=== PATIENT | female | born 1995 | race African-American/Black ===

== ENCOUNTER 2017-02-20 17:52 | Emergency (ER) | payer MEDICAID ==
[~2017-02-20] VITALS: Ht 175.3 cm; Wt 59.0 kg
[2017-02-20 20:02] LABS: BASOPHILS % 0.6 % (0.0-2.0); EOSINOPHILS % 0.7 % (0.0-5.0); HEMATOCRIT. 38.8 % (36.0-48.0); LYMPHOCYTES % 24.7 % (20.0-50.0); MEAN CORPUSCULAR HEMOGLOBIN 30.3 pg (28.0-32.0); MEAN CORPUSCULAR VOLUME 90.6 fL (81.0-99.0); MEAN PLATELET VOLUME 8.3 fl (7.4-10.4); MONOCYTES % 10.6 % (2.0-8.0); NEUTROPHILS % 63.4 % (40.0-76.0); PLATELET 232 x1000/uL (130-400); RED BLOOD CELL COUNT 4.29 mill/uL (4.2-5.4); RED CELL DISTRIBUTION WIDTH 12.9 % (11.6-14.6)
[2017-02-20 20:09] LABS: HCG SCREEN NEGATIVE
[2017-02-20 20:17] LABS: CARBON DIOXIDE 25 mEq/L (21-32); CHLORIDE 105 mEq/L (98-107); ETHANOL BLOOD < 10 mg/dL
[2017-02-20] MEDS ORDERED: ACETAMINOPHEN 325MG TABLET PO ONE (21:45)
[2017-02-20] MEDS ORDERED: OLANZAPINE 10 MG/VIAL IM ONE (21:45)
[2017-02-20] MEDS ORDERED: SODIUM CHLORIDE 0.9% 1,000 ML IV ONE (22:11)
[2017-02-20 22:28] LABS: CLARITY URINE CLOUDY (CLEAR); COLOR URINE YELLOW (YELLOW); GLUCOSE URINE NEGATIVE (NEGATIVE); KETONES URINE 1+ (NEGATIVE); LEUKOCYTE ESTERASE URINE 2+ (NEGATIVE); NITRITE URINE NEGATIVE (NEGATIVE); OCCULT BLOOD URINE NEGATIVE (NEGATIVE); PH URINE 5.5 (4.5-8.0); PROTEIN URINE TRACE (NEGATIVE); SPECIFIC GRAVITY URINE 1.038 (1.005-1.030); UROBILINOGEN URINE 0.2 E.U./dL (0.2-1.0)
[2017-02-20 22:43] LABS: *AMPHETAMINES SCREEN URINE NEGATIVE (NEGATIVE); *BARBITURATES SCREEN URINE NEGATIVE (NEGATIVE); *BENZODIAZEPINES SCREEN URINE NEGATIVE (NEGATIVE); *COCAINE SCREEN URINE NEGATIVE (NEGATIVE); METHADONE URINE SCREEN NEGATIVE (NEGATIVE); OPIATES URINE SCREEN NEGATIVE (NEGATIVE); PHENCYCLIDINE URINE SCREEN NEGATIVE (NEGATIVE)
[2017-02-20 23:04] LABS: CANNABINOID URINE SCREEN PRESUMTIVE POSITIVE (NEGATIVE)
[2017-02-20] MEDS ORDERED: CEFTRIAXONE 1 G PREMIX 50 ML IV ONE (23:30)
[2017-02-21 05:15] VITALS: BP 92/66
[2017-02-21] MEDS ORDERED: LEVOFLOXACIN 500MG TABLET PO SCH (11:00)
== END 2017-02-21 06:28 | disposition home or self-care (01) ==
LOC: ER 18:24
DX: F12.90 Cannabis use, unspecified, uncomplicated (principal); F91.8 Other conduct disorders; N39.0 Urinary tract infection, site not specified; R03.0 Elevated blood-pressure reading, without diagnosis of hypertension
CPT/HCPCS: 36415; 71010; 80048; 80305; 80307; 80329; 81001; 83605; 84703; 85025; 87040; 87086; 96361; 96365; 96372; 99285; G0482; J0696; J3490; J7030; Z7610

== ENCOUNTER 2018-09-12 12:12 | Emergency (ER) | payer MEDICAID ==
[~2018-09-12] VITALS: Ht 165.1 cm; Wt 75.0 kg
[2018-09-12 12:22] VITALS: BP 119/43
== END 2018-09-12 13:33 | disposition left against medical advice (07) ==
LOC: ER 12:12
DX: J02.9 Acute pharyngitis, unspecified (principal); Z53.21 Procedure and treatment not carried out due to patient leaving prior to being seen by health care provider

== ENCOUNTER 2018-09-12 13:43 | Emergency (ER) | payer MEDICAID ==
[~2018-09-12] VITALS: Ht 165.1 cm; Wt 73.0 kg
[2018-09-12] MEDS ORDERED: DEXAMETHASONE 10 MG/ML VIAL IM ONE (14:45)
[2018-09-12] MEDS ORDERED: KETOROLAC 30MG/ML VIAL IM ONE (14:45)
[2018-09-12 14:54] VITALS: BP 109/60
== END 2018-09-12 15:04 | disposition home or self-care (01) ==
LOC: ER 13:43
DX: J02.9 Acute pharyngitis, unspecified (principal); L53.9 Erythematous condition, unspecified; Z87.891 Personal history of nicotine dependence
CPT/HCPCS: 81025; 96372; 99283; J1100; J1885

== ENCOUNTER 2018-10-20 21:35 | Inpatient (IN) | payer SELFPAY ==
[~2018-10-20] VITALS: Ht 170.2 cm; Wt 64.9 kg
[2018-10-20] MEDS ORDERED: SODIUM CHLORIDE 0.9% 1,000 ML IV ONE (21:44)
[2018-10-20] MEDS ORDERED: OLANZAPINE 10 MG/VIAL IM ONE (21:45)
[2018-10-20] MEDS ORDERED: ONDANSETRON HCL 4MG/2ML INJ IV ONE (21:45)
[2018-10-20] MEDS ORDERED: LORAZEPAM 2MG/ML CPJ IM ONE (21:45)
[2018-10-20 22:44] LABS: BASOPHILS % 0.7 % (0.0-2.0); EOSINOPHILS % 0.6 % (0.0-5.0); HEMATOCRIT. 41.9 % (36.0-48.0); HEMOGLOBIN. 13.8 g/dL (12.0-16.0); MEAN CORPUSCULAR HEMOGLOBIN 30.6 pg (28.0-32.0); MEAN CORPUSCULAR VOLUME 92.8 fL (81.0-99.0); MEAN PLATELET VOLUME 8.1 fl (7.4-10.4); MONOCYTES % 6.3 % (2.0-8.0); NEUTROPHILS % 56.4 % (40.0-76.0); PLATELET 301 x1000/uL (130-400); RED BLOOD CELL COUNT 4.52 mill/uL (4.2-5.4); RED CELL DISTRIBUTION WIDTH 13.6 % (11.6-14.6)
[2018-10-20 22:47] LABS: CLARITY URINE CLEAR (CLEAR); COLOR URINE YELLOW (YELLOW); KETONES URINE NEGATIVE (NEGATIVE); LEUKOCYTE ESTERASE URINE TRACE (NEGATIVE); NITRITE URINE NEGATIVE (NEGATIVE); OCCULT BLOOD URINE NEGATIVE (NEGATIVE); PROTEIN URINE NEGATIVE (NEGATIVE); SPECIFIC GRAVITY URINE 1.006 (1.005-1.030); UROBILINOGEN URINE 0.2 E.U./dL (0.2-1.0)
[2018-10-20 22:50] LABS: CHLORIDE 109 mEq/L (98-107)
[2018-10-20 22:53] LABS: ETHANOL BLOOD 124 mg/dL; PARTIAL THROMBOPLASTIN TIME 24.7 sec (23.4-31.0); PROTHROMBIN TIME 10.1 sec (9.6-11.0)
[2018-10-20 22:58] LABS: *AMPHETAMINES SCREEN URINE NEGATIVE (NEGATIVE); *BARBITURATES SCREEN URINE NEGATIVE (NEGATIVE); *BENZODIAZEPINES SCREEN URINE NEGATIVE (NEGATIVE); *COCAINE SCREEN URINE NEGATIVE (NEGATIVE)
[2018-10-20 22:59] LABS: METHADONE URINE SCREEN NEGATIVE (NEGATIVE); OPIATES URINE SCREEN NEGATIVE (NEGATIVE); PHENCYCLIDINE URINE SCREEN NEGATIVE (NEGATIVE)
[2018-10-20 23:07] LABS: CANNABINOID URINE SCREEN PRESUMTIVE POSITIVE (NEGATIVE)
[2018-10-20 23:09] LABS: HCG SCREEN POSITIVE
[2018-10-20] MEDS ORDERED: DEXT 5%/0.45% NACL KCL 20MEQ/L 1,000 ML IV ONE (23:47)
[2018-10-21] VITALS (18 sets, daily range): BP systolic 75–142; BP diastolic 44–80
[2018-10-21] MEDS ORDERED: SODIUM CHLORIDE 0.9% 1,000 ML IV ONE ×2 (01:19→05:45)
[2018-10-21 02:43] LABS: CHLORIDE 115 mEq/L (98-107)
[2018-10-21] MEDS ORDERED: ONDANSETRON HCL 4MG/2ML INJ IV PRN (10:30)
[2018-10-21 12:25] LABS: BASOPHILS % 0.4 % (0.0-2.0); EOSINOPHILS % 0.5 % (0.0-5.0); HEMATOCRIT. 36.6 % (36.0-48.0); HEMOGLOBIN. 12.2 g/dL (12.0-16.0); LYMPHOCYTES % 27.4 % (20.0-50.0); MEAN CORPUSCULAR HEMOGLOBIN 30.5 pg (28.0-32.0); MEAN CORPUSCULAR VOLUME 91.8 fL (81.0-99.0); MEAN PLATELET VOLUME 7.8 fl (7.4-10.4); MONOCYTES % 7.5 % (2.0-8.0); NEUTROPHILS % 64.2 % (40.0-76.0); PLATELET 244 x1000/uL (130-400); RED BLOOD CELL COUNT 3.99 mill/uL (4.2-5.4); RED CELL DISTRIBUTION WIDTH 13.3 % (11.6-14.6)
[2018-10-21 12:32] LABS: CHLORIDE 114 mEq/L (98-107)
[2018-10-22] VITALS (11 sets, daily range): BP systolic 104–117; BP diastolic 54–76
[2018-10-22 12:07] LABS: BASOPHILS % 0.5 % (0.0-2.0); EOSINOPHILS % 0.8 % (0.0-5.0); HEMATOCRIT. 41.6 % (36.0-48.0); HEMOGLOBIN. 13.9 g/dL (12.0-16.0); MEAN CORPUSCULAR HEMOGLOBIN 30.7 pg (28.0-32.0); MEAN CORPUSCULAR VOLUME 91.7 fL (81.0-99.0); MEAN PLATELET VOLUME 8.3 fl (7.4-10.4); MONOCYTES % 6.2 % (2.0-8.0); NEUTROPHILS % 72.5 % (40.0-76.0); PLATELET 283 x1000/uL (130-400); RED BLOOD CELL COUNT 4.54 mill/uL (4.2-5.4); RED CELL DISTRIBUTION WIDTH 13.7 % (11.6-14.6)
[2018-10-22 12:12] LABS: CHLORIDE 105 mEq/L (98-107)
[2018-10-22] MEDS: ACETAMINOPHEN 325MG TABLET PO PRN (21:40)
[2018-10-23] VITALS: BP 99/51
[2018-10-23 04:00] VITALS: BP 146/99
[2018-10-23 08:00] VITALS: BP 116/66
[2018-10-23] MEDS: PRENATAL VIT/FE FUMARATE/FA TABLET PO SCH (08:50)
[2018-10-23] MEDS: ACETAMINOPHEN 325MG TABLET PO PRN ×2 (08:51→21:02)
[2018-10-23 12:00] VITALS: BP 116/50
[2018-10-23] MEDS ORDERED: ONDANSETRON 4MG ODT PO PRN (14:15)
[2018-10-23] MEDS: LORAZEPAM 0.5MG TABLET PO PRN (17:53)
[2018-10-23 20:00] VITALS: BP 114/60
[2018-10-24] VITALS: BP 111/59
[2018-10-24 04:00] VITALS: BP 121/69
[2018-10-24] MEDS: PRENATAL VIT/FE FUMARATE/FA TABLET PO SCH (08:30)
[2018-10-24] MEDS: ACETAMINOPHEN 325MG TABLET PO PRN ×2 (08:33→18:32)
[2018-10-24] MEDS: LORAZEPAM 0.5MG TABLET PO PRN ×2 (11:03→17:06)
[2018-10-25] MEDS: LORAZEPAM 0.5MG TABLET PO PRN ×2 (03:42→08:40)
[2018-10-25] MEDS: PRENATAL VIT/FE FUMARATE/FA TABLET PO SCH (08:40)
== END 2018-10-25 12:30 | disposition left against medical advice (07) | DRG 566 ==
LOC: ER 22:27 → MICUSO 10-21 01:10 → ENRESERV 10-21 07:43 → 6EST 10-22 21:12
PROVIDERS: ADMIT Internal Medicine; ATTEND Internal Medicine
DX: O9A.211 Injury, poisoning and certain other consequences of external causes complicating pregnancy, first trimester (principal); E87.8 Other disorders of electrolyte and fluid balance, not elsewhere classified; F17.210 Nicotine dependence, cigarettes, uncomplicated; T39.012A Poisoning by aspirin, intentional self-harm, initial encounter; O99.281 Endocrine, nutritional and metabolic diseases complicating pregnancy, first trimester; O99.341 Other mental disorders complicating pregnancy, first trimester; F31.9 Bipolar disorder, unspecified; O99.331 Smoking (tobacco) complicating pregnancy, first trimester; Z3A.00 Weeks of gestation of pregnancy not specified; Y92.89 Other specified places as the place of occurrence of the external cause
CPT/HCPCS: 36415; 76801; 80048; 80305; 80307; 80320; 80329; 84702; 84703; 93970; 96361; 96372; 96374; 99291; J2060; J2405; J3490; J7030; A4315; G0480

== ENCOUNTER 2018-11-13 20:47 | Emergency (ER) | payer SELFPAY ==
[~2018-11-13] VITALS: Ht 167.6 cm; Wt 59.0 kg
[2018-11-13 20:58] VITALS: BP 104/59
== END 2018-11-13 21:57 | disposition left against medical advice (07) ==
LOC: ER 20:47
DX: R10.84 Generalized abdominal pain (principal); Z53.21 Procedure and treatment not carried out due to patient leaving prior to being seen by health care provider

== ENCOUNTER 2022-09-30 12:35 | Emergency (ER) | payer OTHER ==
[~2022-09-30] VITALS: Ht 167.6 cm; Wt 90.0 kg
[2022-09-30 12:37] VITALS: BP 130/89
[2022-09-30] MEDS ORDERED: KETOROLAC 30MG/ML VIAL IM ONE (13:30)
[2022-09-30] MEDS ORDERED: IBUP-2028 MT (13:43)
== END 2022-09-30 13:53 | disposition home or self-care (01) ==
LOC: ER 12:48
DX: S92.502A Displaced unspecified fracture of left lesser toe(s), initial encounter for closed fracture (principal); X58.XXXA Exposure to other specified factors, initial encounter; Y93.89 Activity, other specified; Y92.89 Other specified places as the place of occurrence of the external cause; Y99.8 Other external cause status
CPT/HCPCS: 73620; 81025; 96372; 99283; J1885